=== PATIENT | female | born 1930 | race Hispanic/Latino ===

== ENCOUNTER 2017-03-18 21:54 | Emergency (ER) | payer MEDICARE ==
[2017-03-18 21:55] VITALS: BMI 32.8
[2017-03-18 22:24] VITALS: BP 175/69; PULSE 57; RESP 18; TEMP 98; O2SAT 97
--- NOTE | 2017-03-18 23:40 | ED PDOC ---
Arrival/HPI - General Chief Complaint: High Blood Sugar Time Seen by Provider: 03/18/17 22:40 Historian: Patient - History of Present Illness Narrative History of Present Illness (Text): 03/18/17 23:25 An 86 year old female patient, whose past medical history includes hypertension and diabetes, who presents to the emergency department complaining of high blood sugar tonight. Patient states she took her blood sugar tonight, noted it was over 400, and took 1 extra Glimipiride tablet. Patient has apparently had allergies to various diabetic hyperglycemic agents, and was recently started on Glimipiride which she feels may not be helping her. Patient states her blood sugar runs in the 200s normally. Patient is asymptomatic and states she feels fine otherwise. Patient denies any fever, chills, chest pain, shortness of breath, nausea, vomiting, diarrhea, urinary symptoms, back pain, neck pain, headache, dizziness, or any other complaints. Time/Duration: Prior to Arrival Symptom Onset: Gradual Symptom Course: Unchanged Activities at Onset: Rest, Light Context: Home Past Medical History - Provider Review Nursing Documentation Reviewed: Yes - Infectious Disease Hx of Infectious Diseases: None - Cardiac Hx Cardiac Disorders: Yes (CAD) Hx Hypertension: Yes Hx Pacemaker: No - Pulmonary Hx Respiratory Disorders: No - Neurological Hx Neurological Disorder: No - HEENT Hx HEENT Disorder: Yes Hx Cataracts: Yes - Renal Hx Renal Disorder: No - Endocrine/Metabolic Hx Endocrine Disorders: Yes Hx Diabetes Mellitus Type 2: Yes - Hematological/Oncological Hx Blood Disorders: No - Integumentary Hx Dermatological Disorder: No - Musculoskeletal/Rheumatological Hx Musculoskeletal Disorders: Yes (RIGHT WRIST) Hx Arthritis: Yes (RIGHT KNEE 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) Hx Falls: Yes Hx Unsteady Gait: Yes (CANE) Other/Comment: LEFT KNEE REPLACEMENT 2011 - Gastrointestinal Hx Gastrointestinal Disorders: Yes (LAP GEETHA 1999) Hx Gall Bladder Disease: Yes (CHOLECYSTECTOMY 1999) - Genitourinary/Gynecological Hx Genitourinary Disorders: No - Psychiatric Hx Emotional Abuse: No Hx Physical Abuse: No Hx Substance Use: No - Surgical History Hx Cardiac Catheterization: Yes (2011) Other/Comment: RIGHT WRIST ORIF - Anesthesia Hx Anesthesia: Yes Hx Anesthesia Reactions: No Hx Malignant Hyperthermia: No - Suicidal Assessment Feels Threatened In Home Enviroment: No Family/Social History - Physician Review Nursing Documentation Reviewed: Yes Family/Social History: No Known Family HX Smoking Status: Former Smoker Hx Alcohol Use: No Hx Substance Use: No Allergies/Home Meds Allergies/Adverse Reactions: Allergies No Known Allergies Allergy (Verified 04/15/12 15:17) Home Medications: Home Meds Medication Instructions Recorded Confirmed Glimepiride [amaRYL] 1 tab PO BID 03/18/17 03/18/17 Nebivolol [Bystolic] 1 tab PO DAILY 03/18/17 03/18/17 Ropinirole HCl [Requip] 1 tab PO BID 03/18/17 03/18/17 SITagliptin [Januvia] 1 tab PO DAILY 03/18/17 03/18/17 amLODIPine [Norvasc] 1 tab PO DAILY 03/18/17 03/18/17 Review of Systems - Physician Review All systems were reviewed & negative as marked: Yes - Review of Systems Constitutional: Normal. absent: Fevers Eyes: Normal ENT: Normal Respiratory: Normal. absent: SOB, Cough Cardiovascular: Normal. absent: Chest Pain Gastrointestinal: Normal. absent: Abdominal Pain, Diarrhea, Nausea, Vomiting Genitourinary Female: Normal. absent: Dysuria, Frequency, Hematuria, Urine Output Changes Musculoskeletal: Normal. absent: Back Pain, Neck Pain Skin: Normal. absent: Rash Neurological: Normal. absent: Headache, Dizziness Endocrine: Normal, Other (High Blood Sugar) Hemo/Lymphatic: Normal Psychiatric: Normal Physical Exam Vital Signs Reviewed: Yes Vital Signs Temp Pulse Resp BP Pulse Ox 03/18/17 22:23 98.0 F 57 L 18 175/69 H 97 Temperature: Afebrile Blood Pressure: Hypertensive Pulse: Regular Respiratory Rate: Normal Appearance: Positive for: Well-Appearing, Non-Toxic, Comfortable Pain Distress: None Mental Status: Positive for: Alert and Oriented X 3 Finger Stick Blood Glucose: 281 - Systems Exam Head: Present: Atraumatic, Normocephalic Pupils: Present: PERRL Extroacular Muscles: Present: EOMI Conjunctiva: Present: Normal Mouth: Present: Moist Mucous Membranes Neck: Present: Normal Range of Motion Respiratory/Chest: Present: Clear to Auscultation, Good Air Exchange. No: Respiratory Distress, Accessory Muscle Use Cardiovascular: Present: Regular Rate and Rhythm, Normal S1, S2. No: Murmurs Abdomen: Present: Normal Bowel Sounds. No: Tenderness, Distention, Peritoneal Signs Back: Present: Normal Inspection Upper Extremity: Present: Normal Inspection. No: Cyanosis, Edema Lower Extremity: Present: Normal Inspection. No: Edema Neurological: Present: GCS=15, CN II-XII Intact, Speech Normal Skin: Present: Warm, Dry, Normal Color. No: Rashes Psychiatric: Present: Alert, Oriented x 3, Normal Insight, Normal Concentration Medical Decision Making ED Course and Treatment: 03/18/17 23:35 Impression: An 86 year old female patient with high blood sugar. Differential Diagnosis included but are not limited to: diabetes vs. hyperglycemia Plan: -- Labs -- Reassess and disposition Prior Visits: Notes and results from previous visits were reviewed. Progress Notes: 03/18/17 23:45 Patient eloped from emergency department prior to receiving treatment/further evaluation. - Lab Interpretations Lab Results: Lab Results 03/18/17 22:29: POC Glucose (mg/dL) 281 H - Scribe Statement The provider has reviewed the documentation as recorded by the Scribe Lata Shabazz training under Liyah Clayton Provider Scribe Attestation: All medical record entries made by the Scribe were at my direction and personally dictated by me. I have reviewed the chart and agree that the record accurately reflects my personal performance of the history, physical exam, medical decision making, and the department course for this patient. I have also personally directed, reviewed, and agree with the discharge instructions and disposition. Disposition/Present on Arrival - Present on Arrival Any Indicators Present on Arrival: No History of DVT/PE: No History of Uncontrolled Diabetes: Yes Urinary Catheter: Yes History of Decub. Ulcer: No History Surgical Site Infection Following: Orthopedic Procedures - Disposition Have Diagnosis and Disposition been Completed?: Yes Diagnosis: Diabetes mellitus Disposition: ELOPEMENT - ER ONLY Disposition Time: 23:45 Condition: STABLE Forms: [employer] ([place])
== END 2017-03-19 00:16 | disposition left against medical advice (07) ==
LOC: ED 21:54
DX: E11.9 Type 2 diabetes mellitus without complications (principal); Z79.84 Long term (current) use of oral hypoglycemic drugs